=== PATIENT | male | born 1950 | race Caucasian/White ===

== ENCOUNTER 2018-10-02 07:49 | Day surgery (SDC) | payer MEDICARE ==
[2018-10-01 11:56] VITALS: BMI 29.0
--- NOTE | 2018-10-01 14:03 | HP ---
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 He has a large exophytic growth, left shoulder, 3 x 3.5 cm. He will need wide local excision of this skin cancer with possible skin graft closure. He has several other nodules, one on his right forearm, two on his left, each measuring about 1 cm to 1.5 cm. He will need excision of these in addition. The patient reports having presented for consideration for right total knee replacement, underwent cardiac evaluation in 2009, finding coronary artery disease, requiring coronary artery bypass grafting. He never pursued knee replacement since then. He has not seen Dr. Chicas since that event. He reports chest pain and pressure associated with activity, exertion. He has not seen Dr. Chicas or his physician regarding this. He has run out of Flomax. He is still taking his metformin. ALLERGIES: PENICILLIN. SOCIAL HISTORY: Tobacco, 2 packs per day. Alcohol, socially. MEDICATIONS: 1. Metformin 500 twice a day. 2. Fish oil daily. 3. Flomax 0.4 mg. 4. Lisinopril 20 mg a day. 5. Aspirin 81 mg a day. 6. Atorvastatin 20 mg a day. PAST SURGICAL HISTORY: Umbilical hernia repair with mesh that I performed on 05/19/2014. He had an incarcerated umbilical hernia at that time. In 2009, coronary artery bypass grafting after presenting for evaluation for right total knee. He never had the right total knee replaced and went on to have a bypass. PAST MEDICAL HISTORY: Hypertension, diabetes mellitus, BPH, and coronary artery disease. REVIEW OF SYSTEMS: Noncontributory except as above. No history of colonoscopy. PHYSICAL EXAMINATION: VITAL SIGNS: Weight 180 pounds, height 66 inches. Blood pressure 145/80, pulse 79, and temperature 98.2 degrees. HEAD, EARS, EYES, NOSE, AND THROAT: Unremarkable. LUNGS: Clear to auscultation. CARDIAC: Regular rate and rhythm without murmur or gallop. ABDOMEN: Soft and nontender. Well-healed umbilical hernioplasty. Scar from sternotomy healed. EXTREMITIES: Unremarkable. Right forearm 1-cm exophytic nodule consistent with advanced actinic keratoses versus early skin cancer. Two nodules similarly on the left forearm, one on the upper arm. 3.5 x 3 cm exophytic mass, left shoulder. ASSESSMENT AND PLAN: 1. Skin cancers, left shoulder, need excision. Might need a skin graft excision on the right forearm and two lesions on the left forearm and possibly a left upper arm lesion as an outpatient under sedation, local anesthesia after cardiac clearance. 2. Coronary artery disease. Ongoing tobacco abuse. He has symptoms of chest pain and pressure. We will require him to see Dr. Chicas prior to undergoing surgery for excision of these lesions. 3. Diabetes mellitus. 4. Hypertension. 5. Tobacco abuse. 6. BPH. Job ID: [id number]
[2018-10-02] MEDS ORDERED: Lidocaine 1% w/Epinephrine 1:100K 30 ML VIAL ONE (08:19)
[2018-10-02] MEDS ORDERED: Lidocaine 2% PF 5 ML VIAL ONE (08:19)
[2018-10-02] MEDS ORDERED: Bupivacaine HCl 0.5%/Epinephrine 1:200,000/PF 30 ml Vial ONE (08:19)
[2018-10-02] MEDS ORDERED: Bacitracin Zinc Ointment 30 gm TUBE ONE (08:19)
[2018-10-02] MEDS ORDERED: Ketorolac Tromethamine 30 MG/ML VIAL ONE (08:24)
[2018-10-02] MEDS ORDERED: Levofloxacin 500 mg/D5W 100 ml Premix Bag ONE (08:24)
[2018-10-02] MEDS ORDERED: Fentanyl 100 MCG/2 ML VIAL ONE ×2 (08:45→11:14)
[2018-10-02] MEDS ORDERED: Albuterol Sulfate HFA (OR ONLY) ONE (08:45)
[2018-10-02] MEDS ORDERED: Famotidine/PF 20 mg/2ml Vial ONE (08:45)
[2018-10-02 08:46] LABS: #Basophils 0.1 thou/uL (0.0-0.2); #Eosinphils 0.5 thou/uL (0.0-0.7); #Lymphocytes 2.7 thou/uL (1.20-3.40); #Monocytes 0.7 thou/uL (0.11-0.59); #Neutrophils 4.6 thou/uL (1.40-6.50); %Basophils 1.4 % (0.0-1.0); %Lymphocytes 31.3 % (21.0-51.0); %Monocytes 8.2 % (0.0-10.0); %Neutrophils 53.1 % (42.0-75.0); Hemoglobin 13.8 g/dL (14.0-18.0); Mean Corpuscular HGB CONC 34.2 g/dL (32.0-36.0); Mean Corpuscular Hemoglobin 31.7 pg (27.0-31.0); Mean Corpuscular Volume 92.6 fL (78.0-98.0); Mean Platelet Volume 6.5 fL (7.4-10.4); Platelet Count 349 thou/uL (130-400); RBC Distribution Width 11.5 % (11.5-14.5); Red Blood Cell (RBC) Count 4.37 mill/uL (4.70-6.10); White Blood Cell (WBC) Count 8.7 thou/uL (4.8-10.8)
[2018-10-02] MEDS ORDERED: Lidocaine 4% Topical Sol 50 ML BOT ONE (08:51)
[2018-10-02] MEDS ORDERED: Bupivacaine/Epinephrine 0.25% 30 ML VIAL ONE (09:42)
[2018-10-02] MEDS ORDERED: Albumin 5% 500 ML ONE (10:11)
[2018-10-02] MEDS ORDERED: PHENYLEPHRINE-NS 100 MCG/ML 10 ML SYRINGE ONE ×2 (10:57→15:22)
[2018-10-02 13:33] LABS: Anion Gap 14 mmol/L (10-20); BUN (Urea Nitrogen) 14 mg/dL (8.4-25.7); Calc. Creatinine Clearance 79 mL/min (70-130); Calcium 8.9 mg/dL (7.8-10.44); Carbon Dioxide 22 mmol/L (23-31); Chloride 106 mmol/L (98-107); Estimated GFR-MDRD 72; Glucose 192 mg/dL (80-115); Potassium 4.2 mmol/L (3.5-5.1); Sodium 138 mmol/L (136-145)
[2018-10-02] MEDS ORDERED: ePHEDrine/0.9% NaCl/PF SYRINGE 50 mg/10 ml ONE (15:22)
[2018-10-02] MEDS ORDERED: Metoclopramide HCl 10 MG/2 ML VIAL ONE (15:22)
[2018-10-02] MEDS ORDERED: Hydrocortisone Sod Succ/PF 100 mg/2 ml Vial ONE (15:22)
[2018-10-02] MEDS ORDERED: Lidocaine 1% PF 5 ML VIAL ONE (15:22)
[2018-10-02] MEDS ORDERED: PROVENTIL INHALER 6.7 G (200 INHALATIONS) ONE (15:22)
[2018-10-02] MEDS ORDERED: PROPOFOL 200 MG/20 ML VIAL ONE (15:22)
[2018-10-02] MEDS ORDERED: Ondansetron PF 4 MG/2 ML Vial ONE (15:22)
[2018-10-02] MEDS ORDERED: Rocuronium Bromide 10 MG/ML (10ML VIAL) ONE (15:22)
[2018-10-02] MEDS ORDERED: Glycopyrrolate 0.2 MG/ML 5 ML SYRINGE ONE (15:22)
--- NOTE | 2018-10-02 16:27 | OP ---
DATE OF PROCEDURE: 10/02/2018 PREOPERATIVE DIAGNOSIS: Multiple skin lesions, left lower eyelid, left shoulder, 3 lesions left forearm, 1 lesion right forearm, multiple actinic keratosis that he was instructed to see his janitor helper regarding. PROCEDURES PERFORMED: Excision of left lower eyelid lesion, layer closure defect 2.5 cm. Left shoulder lesion 6.5 x 4 cm defect, 7 x 4 cm layer closure. Left forearm lesions x3, proximal mid and distal forearm 2.5, 2.5, and 3 cm defects respectively, all layer closure. Right forearm lesion 2.5 cm, layer closure. ANESTHESIA: General, local 0.5% Marcaine with epinephrine 30 mL, Xylocaine 10 mL, total volume mixture used. DESCRIPTION OF PROCEDURE: The patient was taken to the operating room where under general anesthesia in the supine position, left side of his face prepared with Betadine after lubricating the left eye. ChloraPrep was used on the remainder of the prep, left shoulder, left forearm, right forearm. After adequate prep, local anesthetic was infiltrated in the skin and subcutaneous tissue about the operative site. The left lower eyelid lesion excised and wound closed with 4-0 Monocryl and 4-0 Prolene continuous suture. Antibiotic ointment applied. Left shoulder lesion excised, closure with 3-0 Monocryl, 3-0 Prolene, continuous interrupted vertical mattress sutures of 2-0 Prolene. Forearm lesions left and right excised, indicated dimensions above, all excised and hemostasis gained with the cautery. Subcutaneous tissues of all closed with continuous suture of 3-0 Monocryl, skin with 4-0 Prolene. Sterile dressings applied. The patient tolerated the procedure well. Job ID: [id number]
--- NOTE | 2018-10-10 05:06 | PQF ---
[facility] POST DISCHARGE CLINICAL DOCUMENTATION IMPROVEMENT CLARIFICATION FORM l Todays Date: 10/08/18 l Patients Name JACKIE ROCHA l l Admit Date 10/02/18 l Disch Date 10/02/18 Kitchen Work Supervisor Name Marcell Vega Email: [email or web address] Cell: [phone] To be completed by Kitchen Work Supervisor: Present Clinical Indicators - Signs / Symptoms Results and Location in Medical Record [ ] Documentation of: [ ] [ ] Documentation of: [ ] [ ] Documentation of: [ ] [ ] Documentation of: [ ] [ ] Risks [ ] [ ] [ ] Treatment [ ] SQUAMOUS CELL CARCINOMA LEFT SHOULDER SQUAMOUS CELL CARCINOMA LEFT FOREARM SQUAMOUS CELL CARCINOMA RIGHT FOREARM QUERY FOR MARGINS OF EXCISED LEFT SHOULDER AND ALL BILATERAL FOREARM LESIONS QUERY FOR SIZE OF REPAIR FOR ALL BILATERAL FOREARM LESIONS [ ] [ ] To be completed by Physician: ANABELA MAURO The documentation in this patients record requires clarification to ensure coding compliance and accuracy. Check the appropriate box and include in your discharge summary. [ ] [ ] [ ] [ ] Please check this box if this does not apply to this patient [ ] Unable to determine [ ] Other diagnosis: Review the following information and exercise your independent professional judgment in responding to the clarification. Based upon the clinical findings, risk factors, and treatment, please clarify if you are treating one of the above probable or suspected diagnoses. Physician Signature: Date Time MTDD
== END 2018-10-02 13:40 | disposition home or self-care (01) ==
LOC: SDC 07:49
PROVIDERS: ATTEND Specialist
PROC: 0HBEXZZ Excision of Left Lower Arm Skin, External Approach (ICD-10-PCS; principal; 2018-10-02)
PROC: 0HBCXZZ Excision of Left Upper Arm Skin, External Approach (ICD-10-PCS; 2018-10-02)
PROC: 0HBDXZZ Excision of Right Lower Arm Skin, External Approach (ICD-10-PCS; 2018-10-02)
PROC: 08BRXZX Excision of Left Lower Eyelid, External Approach, Diagnostic (ICD-10-PCS; 2018-10-02)
DX: C44.1192 Basal cell carcinoma of skin of left lower eyelid, including canthus (principal); C44.629 Squamous cell carcinoma of skin of left upper limb, including shoulder; C44.622 Squamous cell carcinoma of skin of right upper limb, including shoulder; L72.9 Follicular cyst of the skin and subcutaneous tissue, unspecified; L57.0 Actinic keratosis; F17.210 Nicotine dependence, cigarettes, uncomplicated; I25.10 Atherosclerotic heart disease of native coronary artery without angina pectoris; E11.9 Type 2 diabetes mellitus without complications; N40.0 Benign prostatic hyperplasia without lower urinary tract symptoms; I10 Essential (primary) hypertension; Z79.84 Long term (current) use of oral hypoglycemic drugs; Z79.82 Long term (current) use of aspirin; Z79.899 Other long term (current) drug therapy; Z88.0 Allergy status to penicillin; Z95.1 Presence of aortocoronary bypass graft
CPT/HCPCS: 11403; 11603 ×2; 11606; 12035; 67840; 80048; 85025; 88305; 96374; P9045; 36415; J0131; J0670; J1720; J1885; J1956; J2001; J2405; J2704; J2765; J3010; S0028

== ENCOUNTER 2019-03-26 09:46 | Outpatient (CLI) | payer MEDICARE ==
--- NOTE | 2019-03-26 11:10 | RAD ---
SINUS MENA VIEW ONLY: HISTORY: MRI safety. FINDINGS: No evidence for metal foreign body within the orbits. IMPRESSION: No evidence for intraorbital metal foreign body. POS: OFF
--- NOTE | 2019-03-26 12:16 | MRI ---
MRI Upper Ext Jt Lt WO Con History: M 75.102 tear of left rotator cuff Comparison: None. Findings: Biceps tendon: Biceps tendon is ruptured along the distal tubercular groove. No normal intr a-articular biceps tendon. Labrum: Circumferential labral tear with superior labral maceration. Rotator cuff: Full-thickness full width supraspinatus and infraspinatus tendon tears from the footpri nt retracted to the glenohumeral joint. Torn fibers are severely tendinotic. Complete rupture of the subscapularis from the footprint also retracted to the glenohumeral joint. Muscles: High-grade atrophy of the supraspinatus, infraspinatus, and subscapularis muscles. Bones: Severe degenerative disease of the acromioclavicular joint. Abnormal articulation with the acr omion and humeral head. Complex ganglion pseudocyst formation extends from the acromioclavicular joint into the superficial soft tissues measuring 2.8 x 2 x 3 cm. Moderate degenerative disease of th e glenohumeral joint. Cartilage: High-grade cartilage fissures of the superior lambdoid. Soft tissues: Abnormal thickening axial pouch inferior glenohumeral ligament. Synovitis of the rotato r interval. Impression: 1. Ruptured intra-articular biceps tendon with the extra-articular tendon scarred down to the distal intertubercular groove. 2. Full-thickness full width supraspinatus, infraspinatus, and subscapularis tendon tears from the fo otprint retracted to the glenohumeral joint. 3. High-grade atrophy of the supraspinatus, infraspinatus, and subscapularis muscles. 4. Severe degenerative disease of the acromioclavicular joint with a large superficial ganglion pseud ocyst containing debris. 5. Multiple high-grade cartilage fissures of the superior glenoid. 6. Synovitis of the axillary pouch and rotator interval. 7. Maceration of the superior labrum with circumferential labral tear. 8. Small bodies in the posterior superior glenohumeral joint.
== END 2019-03-26 09:47 | disposition home or self-care (01) ==
LOC: BICMRI 09:46
PROVIDERS: ATTEND Orthopaedic Surgery
DX: M75.102 Unspecified rotator cuff tear or rupture of left shoulder, not specified as traumatic (principal)
CPT/HCPCS: 70210

== ENCOUNTER 2019-04-19 09:17 | Emergency (ER) | payer MEDICARE ==
--- NOTE | 2019-04-19 09:51 | RAD ---
XR Shoulder Lt 3 View STANDARD: 04/19/2019 9:28 AM CLINICAL INDICATION: Left shoulder pain with limited range of motion. COMPARISON: None. FINDINGS: Bones: No acute fracture. Glenohumeral joint: Mild osteoarthrosis AC joint: Moderate AC joint osteoarthrosis. There is narrowing of the acromiohumeral interval suspici ous for some rotator cuff insufficiency. Visualized lung: Clear. Soft tissues: There is a soft tissue ossific density seen within the musculature posterior to the hum eral head suspicious for heterotopic ossification. IMPRESSION: No acute osseous abnormality. Moderate acromioclavicular and mild glenohumeral joint osteoarthrosis. Narrowing of the acromiohumeral interval can be seen with rotator cuff insufficiency. Small focus of heterotopic ossification within the posterior soft tissues of the left shoulder.
[2019-04-19] MEDS ORDERED: Morphine 4 MG/ML VIAL ONE (10:15)
== END 2019-04-19 11:54 | disposition home or self-care (01) ==
LOC: ERS 09:17
DX: M25.512 Pain in left shoulder (principal); L72.9 Follicular cyst of the skin and subcutaneous tissue, unspecified; E78.5 Hyperlipidemia, unspecified; E11.9 Type 2 diabetes mellitus without complications; I10 Essential (primary) hypertension; F17.210 Nicotine dependence, cigarettes, uncomplicated; Z79.84 Long term (current) use of oral hypoglycemic drugs; Z79.82 Long term (current) use of aspirin; Z79.899 Other long term (current) drug therapy
CPT/HCPCS: 93005; 96374; J2270

== ENCOUNTER 2020-07-07 04:27 | Emergency (ER) | payer MEDICARE, OTHER ==
[2020-07-07] MEDS ORDERED: Ondansetron PF 4 MG/2 ML Vial ONE (04:59)
[2020-07-07] MEDS ORDERED: Morphine 4 MG/ML VIAL ONE ×2 (04:59→06:58)
[2020-07-07 05:26] LABS: #Eosinphils 0.2 thou/uL (0.0-0.7); #Lymphocytes 1.9 thou/uL (1.20-3.40); #Monocytes 0.8 thou/uL (0.11-0.59); #Neutrophils 7.1 thou/uL (1.40-6.50); %Basophils 0.4 % (0.0-1.0); %Eosinophils 2.1 % (0.0-10.0); %Lymphocytes 19.1 % (21.0-51.0); %Monocytes 7.7 % (0.0-10.0); %Neutrophils 70.8 % (42.0-75.0); Hemoglobin 14.1 g/dL (14.0-18.0); Mean Corpuscular Hemoglobin 32.4 pg (27.0-31.0); Mean Corpuscular Volume 95.3 fL (78.0-98.0); Mean Platelet Volume 7.4 fL (7.4-10.4); Platelet Count 311 thou/uL (130-400); RBC Distribution Width 12.2 % (11.5-14.5); Red Blood Cell (RBC) Count 4.35 mill/uL (4.70-6.10); White Blood Cell (WBC) Count 10.1 thou/uL (4.8-10.8)
[2020-07-07 05:48] LABS: ALT (SGPT) 24 U/L (8-55); AST (SGOT) 18 U/L (5-34); Albumin 3.9 g/dL (3.4-4.8); Alkaline Phosphatase 89 U/L (40-110); Anion Gap 13 mmol/L (10-20); BUN (Urea Nitrogen) 30 mg/dL (8.4-25.7); Bilirubin, Total 0.4 mg/dL (0.2-1.2); Calc. Creatinine Clearance 0 mL/min (70-130); Calcium 8.8 mg/dL (7.8-10.44); Carbon Dioxide 23 mmol/L (23-31); Chloride 104 mmol/L (98-107); Estimated GFR-MDRD 48; Glucose 239 mg/dL (83-110); Protein, Total 6.9 g/dL (5.8-8.1); Sodium 136 mmol/L (136-145)
[2020-07-07] MEDS ORDERED: HYDROcodone/Acetaminophen 5/325 mg Tablet ONE (06:58)
--- NOTE | 2020-07-07 08:12 | CT ---
CT OF THE BRAIN WITHOUT CONTRAST: Date: 07/07/2020 COMPARISON: None. HISTORY: Fall off a ladder, 6-ft., with syncope and head trauma. TECHNIQUE: Multiple contiguous axial images were obtained in a CT of the brain without contrast. FINDINGS: There are scattered hypodensities in the subcortical and periventricular white matter, likely seconda ry to small vessel ischemic disease. No large confluent infarction is seen. There is no evidence of h ydrocephalus, intracranial hemorrhage, or extra-axial fluid collection. The calvarium and overlying soft tissues are unremarkable. The visualized paranasal sinuses and masto id air cells are well aerated. IMPRESSION: No evidence of acute intracranial abnormality. POS: EAA
--- NOTE | 2020-07-07 08:53 | CT ---
CT OF THE CHEST WITH CONTRAST CT OF THE ABDOMEN AND PELVIS WITH CONTRAST LIMITED CTS OF THORACIC AND LUMBOSACRAL SPINES WITH CONTRAST: HISTORY: Fall from a ladder 6 feet. Left-sided chest pain, abdominal pain, and back pain. COMPARISON: CT abdomen/pelvis 05/19/2014. TECHNIQUE: 1. Multiple contiguous axial images were obtained in a CT of the chest with contrast. Sagittal and coronal reformats were performed. 2. Multiple contiguous axial images were obtained in a CT of the abdomen and pelvis with contrast. Sagittal and coronal reformats were performed. 3. Limited CTs of the thoracic and lumbosacral spines were performed. Sagittal and coronal reformat s were created based off images obtained in the chest, abdomen, and pelvic CTs. FINDINGS: CT CHEST: The patient is status post CABG. The heart is normal in size. No hilar or mediastinal lymphadenopat hy are seen. Calcifications are seen in the aorta and coronary arteries. No pneumothorax or pleural effusion are seen. Scarring is seen in the lung apices. No suspicious pu lmonary nodules or infiltrates are seen. There are fractures of the left posterolateral left 9th and 10th ribs. The chest wall soft tissues a re unremarkable. CT ABDOMEN/PELVIS: There are multiple hypodensities in the kidneys measuring up to 3.8 cm in size which likely represent s cysts. There are calcifications in the hilar region of both kidneys. The majority of these calcif ications are likely vascular but one of the calcifications in the lower pole of the left kidney measu ring approximately 3 mm in size may be a collecting system calcification. The liver, gallbladder, adrenal glands, spleen, and pancreas are unremarkable. No free air, free flu id, or stranding changes are seen in the abdomen or pelvis. No abdominal or pelvic lymphadenopathy are seen. The bones of the pelvis are unremarkable. There is fusion of both sacroiliac joints. The abdominal wall soft tissues are unremarkable. LIMITED CT OF THE THORACIC AND LUMBOSACRAL SPINE: The vertebral bodies and intervertebral disks demonstrate normal height and alignment without fractur e or subluxation. Moderate degenerative changes are seen in the thoracic and lumbosacral spines. No prevertebral soft tissue swelling is seen. IMPRESSION: 1. Left posterolateral 9th and 10th rib fractures without acute intrathoracic abnormality. 2. No evidence of acute intraabdominal/pelvic abnormality. 3. Bilateral renal cysts and possible small left renal calcification. 4. No evidence of acute osseous abnormality of the thoracic or lumbosacral spine. POS: EAA
[2020-07-07] MEDS ORDERED: Iopamidol-370 76% 500 ML 1 ML ONE (09:05)
--- NOTE | 2020-07-10 10:37 | EKG ---
Test Reason : Blood Pressure : / mmHG Vent. Rate : 073 BPM Atrial Rate : 073 BPM P-R Int : 152 ms QRS Dur : 140 ms QT Int : 454 ms P-R-T Axes : 063 087 070 degrees QTc Int : 500 ms Normal sinus rhythm Right bundle branch block Abnormal ECG Confirmed by CARIN STANTON ([id number]), communications editor MILLIE VENEGAS ([id number]) on 07/10/2020 10:37:31 AM Referred By: Confirmed By:CARIN STANTON
== END 2020-07-07 08:52 | disposition home or self-care (01) ==
LOC: ERS 04:27
DX: S09.90XA Unspecified injury of head, initial encounter (principal); S22.42XA Multiple fractures of ribs, left side, initial encounter for closed fracture; E78.5 Hyperlipidemia, unspecified; E11.9 Type 2 diabetes mellitus without complications; I10 Essential (primary) hypertension; F17.210 Nicotine dependence, cigarettes, uncomplicated; Z79.899 Other long term (current) drug therapy; Z79.82 Long term (current) use of aspirin; W11.XXXA Fall on and from ladder, initial encounter
CPT/HCPCS: 36415; 70450; 71260; 74177; 80053; 85025; 93005; 94799; 96374; 96375; 96376; J2270; J2405; Q9967

== ENCOUNTER 2020-07-21 11:08 | Outpatient (CLI) | payer MEDICARE, OTHER ==
--- NOTE | 2020-07-21 11:23 | RAD ---
Chest 2 views HISTORY: Cough. COMPARISON: CT chest 07/07/2020. FINDINGS: Cardiac silhouette and pulmonary vasculature are unremarkable. Mediastinum is midline with postoperative changes apparent. No confluent airspace consolidation, pneumothorax, or pleural fluid. There are prominent degenerative changes throughout the thoracic spine. Prominent elevation of each h umeral head, lying immediately inferior to the acromion. There is one half shaft width inferior displacement of the distal fragment of an oblique fracture thr ough the posterolateral aspect of the left seventh rib. This was not present on recent CT. The ninth and 10th left rib fractures on the prior CT are not evident on this exam although could be obsc ured. IMPRESSION : No active cardiopulmonary abnormalities are demonstrated. New left posterolateral seventh rib fracture. No pneumothorax. Bilateral chronic rotator cuff tears.
== END 2020-07-21 11:09 | disposition home or self-care (01) ==
LOC: RAD-FRANK 11:08
PROVIDERS: ATTEND Nurse Practitioner Family
DX: R05 Cough (principal); S22.32XA Fracture of one rib, left side, initial encounter for closed fracture; M75.102 Unspecified rotator cuff tear or rupture of left shoulder, not specified as traumatic; M75.101 Unspecified rotator cuff tear or rupture of right shoulder, not specified as traumatic
CPT/HCPCS: 71046

== ENCOUNTER 2021-06-07 13:16 | Outpatient (CLI) | payer MEDICARE | END 2021-06-07 13:17 | disposition home or self-care (01) | LOC: RAD-FRANK 13:16 | PROVIDERS: ATTEND Nurse Practitioner Family | DX: S79.911A Unspecified injury of right hip, initial encounter (principal) ==

== ENCOUNTER 2022-12-26 12:20 | Outpatient (CLI) | payer MEDICARE ==
[~2022-12-26 12:20] MED LIST: Iopamidol 370 76% 100 ML VIAL ONE
== END 2022-12-26 12:21 | disposition home or self-care (01) ==
LOC: BICCT 12:20
PROVIDERS: ATTEND Urology
DX: N40.1 Benign prostatic hyperplasia with lower urinary tract symptoms (principal); N20.0 Calculus of kidney; N28.1 Cyst of kidney, acquired; N28.89 Other specified disorders of kidney and ureter; I71.40 Abdominal aortic aneurysm, without rupture, unspecified; T18.8XXA Foreign body in other parts of alimentary tract, initial encounter; M47.816 Spondylosis without myelopathy or radiculopathy, lumbar region; M43.16 Spondylolisthesis, lumbar region
CPT/HCPCS: 74178

== ENCOUNTER 2023-07-03 15:03 | Outpatient (CLI) | payer MEDICARE | END 2023-07-03 15:04 | disposition home or self-care (01) | LOC: RAD-FRANK 15:03 | PROVIDERS: ATTEND Nurse Practitioner Family | DX: R07.81 Pleurodynia (principal) ==

== ENCOUNTER 2025-04-16 18:21 | Inpatient (IN) | payer MEDICARE ==
[2025-04-16 18:44] LABS: #Basophils 0.03 10x3/uL (0.0-0.2); #Eosinophils 0.03 10x3/uL (0.0-0.7); #Monocytes 0.98 10x3/uL (0.11-0.59); #Neutrophils 10.96 10x3/uL (1.40-6.50); %Basophils 0.2 % (0.0-1.0); %Eosinophils 0.2 % (0.0-10.0); %Lymphocytes 9.5 % (21.0-51.0); %Monocytes 7.4 % (0.0-10.0); %Neutrophils 82.5 % (42.0-75.0); Hematocrit 36.7 % (42.0-52.0); Hemoglobin 12.1 g/dL (14.0-18.0); Mean Corpuscular Hemoglobin 31.5 pg (27.0-31.0); Mean Corpuscular Volume 95.6 fL (78.0-98.0); Platelet Count 245 10x3/uL (130-400); Red Blood Cell (RBC) Count 3.84 mill/uL (4.70-6.10); White Blood Cell (WBC) Count 13.30 10x3/uL (4.8-10.8)
[2025-04-16 19:00] LABS: ALT (SGPT) 9 U/L (Less than 45); AST (SGOT) 17 U/L (11-34); Albumin 3.3 g/dL (3.1-4.5); Alkaline Phosphatase 72 U/L (40-110); Anion Gap 19 mmol/L (10-20); BUN (Urea Nitrogen) 47 mg/dL (8.4-25.7); Bilirubin, Total 0.5 mg/dL (0.3-1.2); Calc. Creatinine Clearance 0 mL/min (70-130); Calcium 8.2 mg/dL (7.8-10.44); Carbon Dioxide 17 mmol/L (23-31); Chloride 111 mmol/L (98-107); Globulin 2.9 g/dL (2.4-3.5); Glucose 130 mg/dL (83-110); Potassium 3.8 mmol/L (3.5-5.1); Sodium 143 mmol/L (136-145)
[2025-04-16 19:03] LABS: Troponin I 0.026 ng/mL (< 0.028)
[2025-04-16 22:41] VITALS: BMI 25.7
[2025-04-16] MEDS ORDERED: Ondansetron PF 4 MG/2 ML Vial IVP PRN (23:37)
[2025-04-16] MEDS ORDERED: Calcium Carbonate 500 MG ChewTAB PO PRN (23:37)
[2025-04-17] MEDS ORDERED: Glucagon 1 MG/ML KIT IM PRN (02:28)
[2025-04-17] MEDS ORDERED: Dextrose 50% Abboject 50 ML SYRINGE SLOW IVP PRN (02:28)
[2025-04-17 04:03] LABS: #Basophils 0.03 10x3/uL (0.0-0.2); #Eosinophils 0.11 10x3/uL (0.0-0.7); #Monocytes 1.04 10x3/uL (0.11-0.59); #Neutrophils 8.95 10x3/uL (1.40-6.50); %Basophils 0.2 % (0.0-1.0); %Eosinophils 0.8 % (0.0-10.0); %Lymphocytes 22.4 % (21.0-51.0); %Monocytes 7.9 % (0.0-10.0); %Neutrophils 68.4 % (42.0-75.0); Hematocrit 38.3 % (42.0-52.0); Hemoglobin 12.4 g/dL (14.0-18.0); Mean Corpuscular Hemoglobin 30.8 pg (27.0-31.0); Mean Corpuscular Volume 95.3 fL (78.0-98.0); Platelet Count 250 10x3/uL (130-400); Red Blood Cell (RBC) Count 4.02 mill/uL (4.70-6.10); White Blood Cell (WBC) Count 13.10 10x3/uL (4.8-10.8)
[2025-04-17 04:47] LABS: Troponin I 0.023 ng/mL (< 0.028)
[2025-04-17 05:00] LABS: Anion Gap 14 mmol/L (10-20); BUN (Urea Nitrogen) 37 mg/dL (8.4-25.7); Calc. Creatinine Clearance 33 mL/min (70-130); Calcium 8.0 mg/dL (7.8-10.44); Carbon Dioxide 17 mmol/L (23-31); Chloride 115 mmol/L (98-107); Glucose 131 mg/dL (83-110); Magnesium 1.7 mg/dL (1.6-2.6); Potassium 3.7 mmol/L (3.5-5.1); Sodium 142 mmol/L (136-145)
[2025-04-17] MEDS ORDERED: Electrolyte Replacement Protocol 1 EACH FS PRN (05:28)
[2025-04-17] MEDS: Magnesium 2 GM/50 ML(in water) Premix IVPB SCH (05:55)
[2025-04-17] MEDS: Finasteride 5 MG TAB PO SCH (09:42)
[2025-04-17] MEDS: Heparin 5,000 UNITS/ML VIAL SC SCH (09:42)
[2025-04-17] MEDS: Aspirin 81 mg Enteric Coated Tablet PO SCH (09:42)
[2025-04-17] MEDS: Senokot S 8.6-50 MG TAB PO SCH (09:42)
[2025-04-17 16:00] LABS: Anion Gap 12 mmol/L (10-20); BUN (Urea Nitrogen) 31 mg/dL (8.4-25.7); Calc. Creatinine Clearance 50 mL/min (70-130); Calcium 8.6 mg/dL (7.8-10.44); Carbon Dioxide 23 mmol/L (23-31); Chloride 112 mmol/L (98-107); Glucose 151 mg/dL (83-110); Potassium 4.3 mmol/L (3.5-5.1); Sodium 143 mmol/L (136-145)
[2025-04-18 03:48] LABS: #Basophils 0.03 10x3/uL (0.0-0.2); #Eosinophils 0.24 10x3/uL (0.0-0.7); #Monocytes 0.84 10x3/uL (0.11-0.59); #Neutrophils 6.28 10x3/uL (1.40-6.50); %Basophils 0.3 % (0.0-1.0); %Eosinophils 2.4 % (0.0-10.0); %Lymphocytes 26.7 % (21.0-51.0); %Monocytes 8.3 % (0.0-10.0); %Neutrophils 61.8 % (42.0-75.0); Hematocrit 35.7 % (42.0-52.0); Hemoglobin 11.8 g/dL (14.0-18.0); Mean Corpuscular Hemoglobin 30.6 pg (27.0-31.0); Mean Corpuscular Volume 92.7 fL (78.0-98.0); Platelet Count 248 10x3/uL (130-400); Red Blood Cell (RBC) Count 3.85 mill/uL (4.70-6.10); White Blood Cell (WBC) Count 10.15 10x3/uL (4.8-10.8)
[2025-04-18 04:20] LABS: Anion Gap 11 mmol/L (10-20); BUN (Urea Nitrogen) 23 mg/dL (8.4-25.7); Calc. Creatinine Clearance 67 mL/min (70-130); Calcium 8.8 mg/dL (7.8-10.44); Carbon Dioxide 23 mmol/L (23-31); Chloride 112 mmol/L (98-107); Glucose 113 mg/dL (83-110); Magnesium 1.8 mg/dL (1.6-2.6); Potassium 3.7 mmol/L (3.5-5.1); Sodium 142 mmol/L (136-145)
[2025-04-18] MEDS: Magnesium 2 GM/50 ML(in water) Premix IVPB SCH (05:32)
[2025-04-18] MEDS: Acetaminophen 325 MG TAB PO PRN (09:05)
[2025-04-19 04:08] LABS: Anion Gap 13 mmol/L (10-20); BUN (Urea Nitrogen) 14 mg/dL (8.4-25.7); Calc. Creatinine Clearance 70 mL/min (70-130); Calcium 8.8 mg/dL (7.8-10.44); Carbon Dioxide 22 mmol/L (23-31); Chloride 109 mmol/L (98-107); Glucose 110 mg/dL (83-110); Potassium 3.3 mmol/L (3.5-5.1); Sodium 141 mmol/L (136-145)
[2025-04-19] MEDS ORDERED: Iopamidol 370 76% 100 ML VIAL ONE (09:28)
[2025-04-19] MEDS: Lisinopril 20 MG TAB PO SCH ×2 (09:58→16:36)
[2025-04-20 04:56] LABS: Anion Gap 12 mmol/L (10-20); BUN (Urea Nitrogen) 11 mg/dL (8.4-25.7); Calc. Creatinine Clearance 84 mL/min (70-130); Calcium 9.0 mg/dL (7.8-10.44); Carbon Dioxide 24 mmol/L (23-31); Cardiac Risk 4.1 (Less than 4.5); Chloride 108 mmol/L (98-107); Cholesterol 132 mg/dl (< 200 Desired); Glucose 94 mg/dL (83-110); HDL Cholesterol 32 mg/dL (>60 Neg Risk); LDL Cholesterol, Calculated 82 mg/dL; Potassium 3.3 mmol/L (3.5-5.1); Sodium 141 mmol/L (136-145); Triglycerides 90 mg/dL (Less than 150)
[2025-04-20] MEDS ORDERED: Lisinopril 20 MG TAB PO SCH (09:00)
[2025-04-20] MEDS: Lisinopril 20 MG TAB PO SCH (09:12)
[2025-04-20] MEDS ORDERED: Iopamidol-370 76% 500 ML MDV (1 ML CHARGE) ONE (09:41)
[2025-04-20 10:21] VITALS: TEMP 98.4
[2025-04-20 13:28] LABS: Potassium 3.7 mmol/L (3.5-5.1)
[2025-04-20 16:08] VITALS: BP 152/74
== END 2025-04-20 17:00 | disposition home or self-care (01) | DRG 315 ==
LOC: ERS 18:21 → PCU 21:27 → OBSVTOIN 04-17 14:00
PROVIDERS: ADMIT Internal Medicine; ATTEND Internal Medicine
DX: I95.9 Hypotension, unspecified (principal); I50.22 Chronic systolic (congestive) heart failure; N17.9 Acute kidney failure, unspecified; I25.10 Atherosclerotic heart disease of native coronary artery without angina pectoris; I11.0 Hypertensive heart disease with heart failure; E11.40 Type 2 diabetes mellitus with diabetic neuropathy, unspecified; F17.210 Nicotine dependence, cigarettes, uncomplicated; Z60.2 Problems related to living alone; D64.9 Anemia, unspecified; D72.829 Elevated white blood cell count, unspecified; E78.5 Hyperlipidemia, unspecified; M47.812 Spondylosis without myelopathy or radiculopathy, cervical region; M48.02 Spinal stenosis, cervical region; Z88.0 Allergy status to penicillin; Z95.1 Presence of aortocoronary bypass graft; Z79.82 Long term (current) use of aspirin; Z79.899 Other long term (current) drug therapy; Z79.84 Long term (current) use of oral hypoglycemic drugs; M54.2 Cervicalgia; M25.551 Pain in right hip; M25.511 Pain in right shoulder; M25.512 Pain in left shoulder; N40.1 Benign prostatic hyperplasia with lower urinary tract symptoms; R33.8 Other retention of urine; R91.1 Solitary pulmonary nodule; I65.23 Occlusion and stenosis of bilateral carotid arteries; W18.30XA Fall on same level, unspecified, initial encounter
CPT/HCPCS: 36415; 36416; 51798; 70450; 70496; 70498; 71045; 71260; 72125; 72170; 76770; 80048; 80053; 80061; 82607; 83036; 83735; 83880; 84100; 84484; 85025; 93005; 93306; 93880; 96372; 96374; G0378; J1644; J1815; J3475; J7030; J7120; Q9967